=== PATIENT | male | born 1965 | race Caucasian/White ===

== ENCOUNTER 2019-12-19 09:16 | Emergency (ER) | payer OTHER ==
[~2019-12-19] VITALS: Ht 180.3 cm; Wt 114.3 kg
[~2019-12-19 09:16] MED LIST: AVALIDE 300-12.1 TA1; CARDURA1 MG; COREG CR20 MG; FLOMAX; GLIBURIDE; JANUVIA100 MG; LOTREL 2.5/10 M1 CAP
[2019-12-19] MEDS ORDERED: TAMS0.4C PO ×2 (09:31→16:04)
[2019-12-19] MEDS ORDERED: ATORVASTATIN CA20 MG PO (09:32)
[2019-12-19] MEDS ORDERED: CHILDREN'S ASPI81 MG PO (09:33)
[2019-12-19] MEDS ORDERED: FARXIGA10 MG PO (09:33)
[2019-12-19] MEDS ORDERED: CLONAZEPAM2 M1 PO (09:34)
[2019-12-19] MEDS ORDERED: GRALISE600 MG PO (09:34)
[2019-12-19] MEDS ORDERED: PEPCID AC20 MG PO (09:35)
[2019-12-19] MEDS ORDERED: PERCOCET 5-3251 EACH PO (09:35)
[2019-12-19] MEDS ORDERED: CIPRO500 MG PO (16:04)
[2019-12-19] MEDS ORDERED: KETO10TA2 PO (16:12)
== END 2019-12-19 16:36 | disposition home or self-care (01) ==
LOC: ER 09:16
DX: N41.8 Other inflammatory diseases of prostate (principal); R10.2 Pelvic and perineal pain; Z03.818 Encounter for observation for suspected exposure to other biological agents ruled out; R53.1 Weakness

== ENCOUNTER 2021-05-19 12:34 | Outpatient (CLI) | payer OTHER ==
[~2021-05-19 12:34] MED LIST changes: +ATORVASTATIN CA20 MG PO; +CHILDREN'S ASPI81 MG PO; +CIPRO500 MG PO; +CLONAZEPAM2 M1 PO; +FARXIGA10 MG PO; +GRALISE600 MG PO; +KETO10TA2 PO; +PEPCID AC20 MG PO; +PERCOCET 5-3251 EACH PO; +TAMS0.4C PO
== END 2021-05-19 12:42 | disposition home or self-care (01) ==
LOC: NUCLEAR 12:34
PROVIDERS: ATTEND Internal Medicine
DX: E85.9 Amyloidosis, unspecified (principal)
CPT/HCPCS: 78469; A9538